=== PATIENT | female | born 1990 | race Two or more races ===

== ENCOUNTER 2016-04-02 16:59 | Emergency (ER) | payer SELFPAY ==
[2016-04-02 17:08] VITALS: TEMP 98; BMI 21.5
--- NOTE | 2016-04-02 18:53 | EDPRACDOC ---
- General Information Chief Complaint: Vaginal Bleeding Stated Complaint: VAGINAL BLEEDING ? MISSCARRIAGE Time Seen by Provider: 04/02/16 17:12 Information Source: Patient Home Medications: Home Medications Amoxicillin [Amoxil] 500 mg PO TID #30 cap 03/21/13 Prednisone [Deltasone, Orasone] 20 mg PO DAILY #10 tab 03/21/13 Allergies/Adverse Reactions: Allergies Allergy/AdvReac Type Severity Reaction Status Date / Time No Known Allergies Allergy Verified 04/02/16 17:10 - History of Present Illness Onset: 1 DAY HPI: PT PRESENTS TODAY WITH 1 WEEK OF VAGINAL SPOTTING. PT STATE THAT TODAY HER BLEEDING BECAME MORE HEAVY AND SHE THOUGHT SHE PASSED A HEAVY CLOT THAT COULD BE PRODUCTS OF CONCEPTION. PT IS UNSURE IF SHE IS . NO TEST AT HOME. PT STATES ABD PAIN THAT SHE DESCRIBES TYPICAL "PERIOD PAIN". SOME NAUSEA. DENIES FEVER, DYSURIA. NO PMH OF PID, ECTOPIC , IUD USE. NO APPARENT DISTRESS. Description: Reports: Spontaneous Location: Reports: Internal Vagina Relevant History: Reports: Currently (?) Control Method: Reports: None Blood Type: B+ Pain Severity: Moderate Vaginal Bleeding Description: Reports: Dark, Products of Conception (?) # Pads Used in the Last 12/24 Hours: 3 Associated Signs & Symptoms: Reports: Abdominal Pain, Vaginal Bleeding ED Past Medical History - History Reviewed Yes Nurses notes reviewed and agree except as marked - Patient Medical History Surgical History: Denies: Hysterectomy - Social Medical History Smoking Status: Never smoker EDM Review of Systems - Review of Systems ROS Negative Except as Marked: Yes All systems reviewed and were negative except as marked Constitutional: No Symptoms Reported Respiratory: No Symptoms Reported Cardiovascular: No Symptoms Reported Gastrointestinal: Nausea, Pain Genitourinary: Bleeding, (?) Neurological: No Symptoms Reported Musculoskeletal: No Symptoms Reported - Physical Exam Constitutional: Alert (Awake), No apparent distress Oriented to: Time, Person, Place Last recorded Vital Signs: Last Vital Signs Temp 98 F 04/02/16 17:05 Pulse 87 04/02/16 18:21 Resp 16 04/02/16 18:21 BP 111/67 04/02/16 18:21 Pulse Ox 100 04/02/16 18:21 Oxygen Pulse Oxygen Saturation 100 O2 Device Room Air Oxygen Flow Rate Fraction of Inspired Oxygen ( FIO2) - HEENT Head: Normal Eye Exam: Normal Neck: Normal, Denies Pain, Midline - Respiratory/Cardiovascular Respiratory: Normal - CTA Cardiovascular: Normal - GI Auscultation: Normal Palpation: Normal Tenderness: Moderate, Suprapubic Boudreaux's Sign: Negative - External: Normal Vagina: Blood Cervix: Blood Uterus: Normal size Adnexa: Bilateral: Normal - Musculoskeletal Back: Normal Extremities: Normal - Integumentary Skin: Normal Lymphatics: Normal - Neurologic Cerebellar: Normal Mood Description: Normal Thought: Coherent Perception: Normal ED Vaginal Exam External: Normal Vaginal Exam: Blood Vaginal Lesions: None Vaginal Discharge: None Cervix: Blood, Tenderness Uterus: Normal size Adnexa: Normal - Results Urine Test Pos (NEGATIVE) H 04/02/16 17:28 Microbiology 04/02/16 18:09 Trichomonas Wet Mount - Final Vaginal 04/02/16 18:09 IVANA Preparation - Final Vaginal Lab Results 04/02/16 17:28 Urine Test Pos H - Additional Information NO LATERALIZATION TO PAIN; NO PAST HISTORY OF ECTOPIC OR RISK FACTORS FOR SAME. PT IS O+ BLOOD TYPE. NO CLINICAL INDICATION FOR FURTHER. Decision Time to Discharge: 19:16 - Departure Disposition: Home Condition: Stable Final Diagnosis: Threatened Instructions: Threatened Miscarriage (ED) Education/Counseling Given To: Patient Education/Counseling Given Regarding: Diagnosis, Treatment, Follow Up Referrals: None,No Provider [Primary Care Provider] - One Week Prescriptions: No Action Amoxicillin [Amoxil] 500 mg PO TID #30 cap Prednisone [Deltasone, Orasone] 20 mg PO DAILY #10 tab Additional Instructions: TYLENOL NEEDED FOR PAIN. PLEASE HAVE BETA QUANT REPEATED IN 3 DAYS, EITHER HERE OR WITH PCP. PELVIC REST UNTIL THEN.
[2016-04-02 19:32] VITALS: BP 99/63; PULSE 86
== END 2016-04-02 19:31 | disposition home or self-care (01) ==
LOC: EDMC 16:59
DX: O20.0 Threatened abortion (principal); Z3A.00 Weeks of gestation of pregnancy not specified
CPT/HCPCS: 36415; 81025; 84702; 87210; 87220; 87491; 87591; 99283

== ENCOUNTER 2016-04-05 17:06 | Emergency (ER) | payer SELFPAY ==
[2016-04-05 17:08] VITALS: BMI 21.5
[2016-04-05 17:11] VITALS: TEMP 99.2
--- NOTE | 2016-04-05 18:45 | EDPRACDOC ---
- General Information Chief Complaint: Female Urogenital Problems Stated Complaint: HERE TO CHECK QUANT Time Seen by Provider: 04/05/16 18:39 Information Source: Patient Mode of Arrival: Car Home Medications: Home Medications No Home Medications 04/05/16 Allergies/Adverse Reactions: Allergies Allergy/AdvReac Type Severity Reaction Status Date / Time No Known Allergies Allergy Verified 04/05/16 18:36 - History of Present Illness Onset: today HPI: PT REPORTS HERE FOR BLOOD CHECK, WAS SEEN ON 04/02/16 FOR ABD PAIN, VAG BLEEDING, STATES PAIN AND BLEEDING HAVE IMPROVED, NO FEVER OR CHILLS, NO N/V/D. PT IS A1 Description: Reports: Spontaneous Location: Reports: Internal Vagina Relevant History: Reports: Other (MISCARRIAGE) : 3 Para: 1 Total Number of Abortions: 2 Last Menstrual Period: 02/18/16 Control Method: Reports: None Blood Type: O+ Pain Severity: Mild Vaginal Bleeding Description: Reports: Clotted Associated Signs & Symptoms: Denies: Fever, Nausea, Vomiting ED Past Medical History - History Reviewed Yes Nurses notes reviewed and agree except as marked No Past Medical History: Yes Patient has no past medical history - Patient Medical History Psychological History: Denies: Depression Surgical History: Denies: Hysterectomy - Social Medical History Smoking Status: Never smoker EDM Review of Systems - Review of Systems Constitutional: negative: Chills, Fever Gastrointestinal: Pain. negative: Nausea, Vomiting Genitourinary: Vaginal Bleeding. negative: Dysuria, Frequency Neurological: negative: Dizziness Integumentary: No Symptoms Reported - Physical Exam Constitutional: Alert (Awake), No apparent distress Oriented to: Time, Person, Place Last recorded Vital Signs: Last Vital Signs Temp 99.2 F 04/05/16 17:06 Pulse 99 04/05/16 17:06 Resp 18 04/05/16 17:06 BP 109/65 04/05/16 17:06 Pulse Ox 99 04/05/16 17:06 Oxygen Pulse Oxygen Saturation 99 O2 Device Oxygen Flow Rate Fraction of Inspired Oxygen ( FIO2) - HEENT Head: Normal ( normocephalic) - Respiratory/Cardiovascular Respiratory: Normal - CTA (BBS clear to auscultation without adventitious sounds ) Cardiovascular: Normal (RRR without murmur, gallop or rub) - Integumentary Skin: Normal, Warm, Dry Lymphatics: Normal (no adenopathy) - Neurologic Memory Impaired: Normal Motor Function: Normal (Normal tone, Pulses 2+ No cyanosis or edema, FROM) Cranial Nerve: Normal (CN II-X11 intact sensation, strength 5/5) Cerebellar: Normal Mood Description: Normal Perception: Normal - Differential Diagnosis Inevitable , Incomplete , Missed - Results Beta HCG, Quant 135.8 mIU/mL (<5) 04/05/16 17:30 Lab Results 04/05/16 17:30 Beta HCG, Quant 135.8 - Additional Information QUANT TRENDING DOWN, PT ADVISED OF IMPORTANCE OF FOLLOW UP WITH [facility] Decision Time to Discharge: 18:46 - Departure Disposition: Home Condition: Stable Final Diagnosis: Miscarriage Instructions: Miscarriage (ED) Education/Counseling Given To: Patient Education/Counseling Given Regarding: Diagnosis, Treatment, Prognosis, Follow Up Referrals: Lulu Schaefer DO [Staff Physician] - One Week Prescriptions: No Action No Home Medications 0 NA DIR #0 info Additional Instructions: PLEASE CALL DR SCHAEFER'S OFFICE TOMORROW TO ARRANGE FOLLOW UP APPOINTMENT, USE TYLENOL OR MOTRIN NEEDED FOR PAIN, RETURN TO THE ED FOR ANY WORSENING SYMPTOMS OR CONCERNS, ESPECIALLY INCREASING ABDOMINAL PAIN, FEVER OR HEAVY VAGINAL BLEEDING (MORE THAN 2 PADS PER HOUR).
[2016-04-05 19:05] VITALS: BP 112/73; PULSE 86
== END 2016-04-05 18:57 | disposition home or self-care (01) ==
LOC: ED 17:06 → EDMC 18:57
DX: O03.9 Complete or unspecified spontaneous abortion without complication (principal)
CPT/HCPCS: 36415; 84702; 99282